=== PATIENT | female | born 1995 | race American Indian/Alaskan Native ===

== ENCOUNTER 2017-08-19 13:49 | Emergency (ER) | payer MEDICAID ==
[~2017-08-19 13:49] MED LIST: NORE1TAB6 PO
[2017-08-19] MEDS ORDERED: AZIT250T PO (14:37)
[2017-08-19 14:48] VITALS: BP 136/70
== END 2017-08-19 14:49 | disposition home or self-care (01) ==
LOC: ER 13:50
DX: J06.9 Acute upper respiratory infection, unspecified (principal); Z88.5 Allergy status to narcotic agent; Z79.899 Other long term (current) drug therapy
CPT/HCPCS: 99283

== ENCOUNTER 2018-12-17 08:51 | Emergency (ER) | payer MEDICAID ==
[~2018-12-17] VITALS: Ht 175.3 cm; Wt 86.4 kg
[~2018-12-17 08:51] MED LIST changes: +AZIT250T PO
[2018-12-17 08:56] VITALS: BP 122/71
[2018-12-17] MEDS ORDERED: AZIT250T83 PO (09:13)
[2018-12-17] MEDS ORDERED: PRED20TA PO (09:13)
== END 2018-12-17 09:43 | disposition home or self-care (01) ==
LOC: ER 08:52
DX: J20.9 Acute bronchitis, unspecified (principal); F17.200 Nicotine dependence, unspecified, uncomplicated; Z88.5 Allergy status to narcotic agent; Z79.899 Other long term (current) drug therapy
CPT/HCPCS: 99283

== ENCOUNTER 2019-10-23 20:17 | Emergency (ER) | payer MEDICAID, OTHER ==
[~2019-10-23] VITALS: Ht 170.2 cm; Wt 79.5 kg
[~2019-10-23 20:17] MED LIST changes: +NORE-126 PO; -NORE1TAB6 PO
[2019-10-23 20:47] LABS: URINE HCG NEGATIVE (NEG)
[2019-10-23 20:48] LABS: CLARITY,URINE CLEAR (Clear); COLOR,URINE STRAW (Yellow); GLUCOSE, URINE NEGATIVE (Neg); KETONES,URINE NEGATIVE (Neg); LEUKOCYTE ESTERASE ,URINE NEGATIVE (Neg); NITRITES, URINE NEGATIVE (Neg); OCCULT BLOOD,URINE NEGATIVE (Neg); PROTEIN,URINE NEGATIVE (Neg); UROBILINOGEN,URINE 0.2 E.U/dL (0.2-1.0)
[2019-10-23 20:49] LABS: UA COLLECTION TYPE CLN CATCH MIDSTREAM
[2019-10-23 21:17] LABS: ALANINE AMINOTRANSFERASE 22 U/L (12-78); ALBUMIN 4.5 G/DL (3.4-5.0); ALBUMIN/GLOBULIN RATIO 1.4 (1.1-1.5); ALKALINE PHOSPHATASE 66 IU/L (46-116); ANION GAP 10 (8-16); ASPARTATE AMINO TRANSFERASE 14 U/L (10-37); BASOPHILS % (AUTO) 0.4 % (0-1); BILIRUBIN,TOTAL 0.4 MG/DL (0.1-1.0); BLOOD UREA NITROGEN 8 MG/DL (7-18); BUN/CREATININE RATIO 11.4 (6.6-38.0); CALCIUM 8.8 MG/DL (8.5-10.1); CHLORIDE 106 MMOL/L (99-107); EOSINOPHILS % (AUTO) 0.7 % (0-6); GLUCOSE 87 MG/DL (70-104); HEMATOCRIT 41.7 % (35.0-45.0); HEMOGLOBIN 14.1 g/dl (12.0-16.0); LYMPHOCYTES # (AUTO) 0.3 X10'3 (1.1-4.8); LYMPHOCYTES % (AUTO) 5.9 % (21-51); MEAN CORPUSCULAR HEMOGLOBIN 28.3 PG (27.0-31.0); MEAN CORPUSCULAR HGB CONC 33.8 g/dL (33.0-36.5); MEAN CORPUSCULAR VOLUME 83.8 FL (78-98); MONOCYTES # (AUTO) 0.6 X10'3 (0-0.9); MONOCYTES % (AUTO) 11.8 % (2-12); NEUTROPHILS # (AUTO) 4.4 X10'3 (1.8-7.7); NEUTROPHILS % (AUTO) 81.2 % (42-75); PLATELET COUNT 163 X10'3 (140-440); POTASSIUM 3.3 MMOL/L (3.5-5.1); RED BLOOD COUNT 4.98 X10'6 (4.20-5.60); RED CELL DISTRIBUTION WIDTH 13.4 % (11.5-14.5); SODIUM 141 MMOL/L (135-145); TOTAL CARBON DIOXIDE 25.3 MMOL/L (24-32); TOTAL PROTEIN 7.8 G/DL (6.4-8.2); WHITE BLOOD COUNT 5.4 X10'3 (4.5-11.0); eGFR > 90 ML/MIN
[2019-10-23] MEDS ORDERED: azithromycin/NS 500mg/250ml 250 ML IV STA (21:35)
[2019-10-23] MEDS ORDERED: normal saline 1000ML IV soln IVB ONE (21:35)
[2019-10-23] MEDS ORDERED: CefTRIAXone/D5W-Rocephin 1gm 50 ML IV STA (21:35)
[2019-10-23] MEDS ORDERED: acetaminophen 325mg tablet PO STA (21:38)
[2019-10-23] MEDS ORDERED: oseltamivir phos 75mg capsule PO ONE (23:20)
[2019-10-23] MEDS ORDERED: TAM75C PO (23:23)
--- NOTE | 2019-10-23 23:23 | NUR ---
POSTIVE FOR ELEANOR Ford MD NOTIFIED YNES
[2019-10-24 00:25] VITALS: BP 107/65
== END 2019-10-24 00:15 | disposition home or self-care (01) ==
LOC: ER 20:19
DX: J10.1 Influenza due to other identified influenza virus with other respiratory manifestations (principal); Z88.5 Allergy status to narcotic agent; Z79.2 Long term (current) use of antibiotics; Z79.899 Other long term (current) drug therapy
CPT/HCPCS: 36415; 71045; 80053; 81003; 81025; 83605; 84145; 85025; 87040; 87502; 87503; 96365; 96367; 99284; J0456; J0696; J7030

== ENCOUNTER 2021-03-04 05:22 | Emergency (ER) | payer BC ==
[~2021-03-04] VITALS: Ht 172.7 cm; Wt 86.4 kg
[2021-03-04 06:01] VITALS: BP 115/70
[2021-03-04] MEDS ORDERED: CIPR7.5D RIGHT EAR (06:15)
== END 2021-03-04 06:30 | disposition home or self-care (01) ==
LOC: ER 05:23
DX: H60.91 Unspecified otitis externa, right ear (principal); H92.01 Otalgia, right ear; Z88.5 Allergy status to narcotic agent; Z88.8 Allergy status to other drugs, medicaments and biological substances; Z79.2 Long term (current) use of antibiotics; Z79.899 Other long term (current) drug therapy
CPT/HCPCS: 99283

== ENCOUNTER 2024-10-13 10:04 | Emergency (ER) | payer BC, MEDICAID ==
[~2024-10-13] VITALS: Ht 170.2 cm; Wt 95.9 kg
[~2024-10-13 10:04] MED LIST changes: +CIPR7.5D RIGHT EAR
[2024-10-13 10:17] VITALS: BP 118/66; PULSE 74; RESP 16; TEMP 98.1; O2SAT 98
[2024-10-13] MEDS ORDERED: AMOX875T10 PO (12:25)
== END 2024-10-13 12:33 | disposition home or self-care (01) ==
LOC: ER 10:05
DX: K04.7 Periapical abscess without sinus (principal); Z88.5 Allergy status to narcotic agent; Z79.899 Other long term (current) drug therapy
CPT/HCPCS: 99283; A5200